=== PATIENT | male | born 1950 | race Caucasian/White ===

== ENCOUNTER 2016-12-09 11:48 | Emergency (ER) | payer OTHER ==
[2016-12-09 12:13] VITALS: BP 176/96; TEMP 97.4; BMI 35.3
[2016-12-09 12:48] LABS: BASOPHILS # (AUTO) 0.1 K/uL (0-0.2); BASOPHILS % (AUTO) 0.3 % (0.0-3.0); EOSINOPHILS % (AUTO) 0.1 % (0.0-7.0); HEMATOCRIT 36.4 % (42.0-52.0); HEMOGLOBIN 12.2 g/dl (14.0-18.0); IMMATURE GRANULOCYTE % (AUTO) 0.4 % (0.0-5.0); LYMPHOCYTES # (AUTO) 0.9 K/uL (0.60-3.4); LYMPHOCYTES % (AUTO) 4.7 (10.0-50.0); MEAN CORPUSCULAR HEMOGLOBIN 26.5 pg (27.0-31.0); MEAN CORPUSCULAR HGB CONC 33.5 (31.8-35.4); MEAN CORPUSCULAR VOLUME 79.1 fl (80.0-94.0); MONOCYTES # (AUTO) 0.9 K/uL (0.4-2.0); MONOCYTES % (AUTO) 5.1 (0-10); NEUTROPHILS # (AUTO) 16.5 K/ul (2.0-6.9); NEUTROPHILS % (AUTO) 89.4; PLATELET COUNT 162 10^3/uL (140-440)
[2016-12-09 12:50] LABS: ABG BASE EXCESS -2 (-2.0-2.0); ABG HCO3 21.5 (22.0-26.0); ABG PCO2 27.2 mmHg (35-45); ABG PH 7.505 (7.35-7.45); ABG TCO2 22 (22.0-28.0)
[2016-12-09 13:40] LABS: ALBUMIN 3.3 g/dL (3.4-5.0); ALBUMIN/GLOBULIN RATIO 0.8; ANION GAP 16.8; BILIRUBIN,TOTAL 2.55 mg/dL (0.00-1.20); BUN/CREATININE RATIO 16.79; CALCIUM 9.1 mg/dL (8.2-10.2); CREATININE 1.31 mg/dL (0.60-1.10); POTASSIUM 3.8 mmol/L (3.5-5.1); TOTAL PROTEIN 7.4 g/dL (5.8-8.1); TROPONIN I 0.029 ng/ml (0.0000-0.4000)
[2016-12-09 13:44] LABS: CREATINE KINASE MB 6.4 ng/ml (0.0-3.6)
--- NOTE | 2016-12-09 13:56 | ED.PDOC ---
General ED Provider: Dr. LISS DURAN Chief Complaint: Altered Mental Status Stated Complaint: ALTERED L.O.C. Time Seen by Physician: 12:10 Mode of Arrival: Ambulance Information Source: Patient Exam Limitations: No limitations Nursing and Triage Documentation Reviewed and Agree: Yes Past Medical History - Social History Smoking Status: Former smoker Hx Substance Use: No Alcohol Screening: None - Immunizations Tetanus Shot up to Date: No Course - Course Hematology/Chemistry: 12/09/16 12:35 12/09/16 12:35 Orders, Labs, Meds: Lab Review 12/09/16 12/09/16 12:35 12:44 WBC 18.50 H RBC 4.60 L Hgb 12.2 L Hct 36.4 L MCV 79.1 L MCH 26.5 L MCHC 33.5 RDW Coeff of Janeen 14.5 Plt Count 162 Immature Gran % (Auto) 0.4 Neut % (Auto) 89.4 Lymph % (Auto) 4.7 L Miller % (Auto) 5.1 Eos % (Auto) 0.1 Baso % (Auto) 0.3 Immature Gran # (Auto) 0.1 Neut # 16.5 H Lymph # 0.9 Miller # 0.9 Eos # 0.0 Baso # 0.1 D-Dimer 0.74 Puncture Site Rbrach O2 Saturation 98.0 ABG pH 7.505 H* ABG pCO2 27.2 L ABG pO2 86.0 ABG HCO3 21.5 L ABG Total CO2 22 ABG Base Excess -2 FiO2 % 21.0 Sodium 136 Potassium 3.8 Chloride 103 Carbon Dioxide 20 L Anion Gap 16.8 BUN 22 H Creatinine 1.31 H Estimated GFR (MDRD) 55.00 BUN/Creatinine Ratio 16.79 Glucose 225 H Lactic Acid 20.7 H Calcium 9.1 Total Bilirubin 2.55 H AST 67 H ALT 33 Alkaline Phosphatase 148 H Total Creatine Kinase 951 CK-MB (CK-2) 6.4 H* CK-MB (CK-2) % 0.61629 Troponin I 0.0290 Total Protein 7.4 Albumin 3.3 L Globulin 4.1 Albumin/Globulin Ratio 0.80 Orders Category Date Time Status ABG DRAW REQUEST Stat CARDIO 12/09/16 12:44 Completed EKG-(ED ONLY) Stat CARDIO 12/09/16 12:13 Completed NPO REMINDER: IMAGING ONCE CARE 12/09/16 13:51 Active ABG Stat LAB 12/09/16 12:44 Completed BLOOD CULTURE Stat LAB 12/09/16 12:35 Received CBC W/ AUTO DIFF Stat LAB 12/09/16 12:35 Completed COMPREHENSIVE METABOLIC PANEL Stat LAB 12/09/16 12:35 Completed CREATINE KINASE Stat LAB 12/09/16 12:35 Completed D-DIMER Stat LAB 12/09/16 12:35 Completed LACTIC ACID Stat LAB 12/09/16 12:35 Completed TROPONIN I Stat LAB 12/09/16 12:35 Completed URINALYSIS C & S IF INDICATED Stat LAB 12/09/16 12:12 Uncollected CHEST, 1V AP ONLY Stat RADS 12/09/16 12:[address] ABD/PEL WO RENAL STONE PROT Stat RADS 12/09/16 12:[address] CHEST W/O CONTRAST Stat RADS 12/09/16 12:[address] HEAD W/O CONTRAST Stat RADS 12/09/16 12:13 Ordered ULTRASOUND ABDOMEN, RT. UPPER QUAD [U/S ABDOMEN, RT. RADS 12/09/16 13:50 Ordered UPPER QUAD] Stat Vital Signs: Temp Pulse Resp BP Pulse Ox 12/09/16 12:08 97.4 F L 115 H 20 176/96 H 98 Departure - Departure Allergies/Adverse Reactions: Allergies Iodinated Contrast Media - Oral and Adverse Reaction (Verified 12/09/16 12:55) naproxen [From Aleve] Adverse Reaction (Verified 12/09/16 12:55) Home Medications: Ambulatory Orders Benazepril HCl 20 mg PO DAILY 12/09/16 Citalopram Hydrobromide [Citalopram HBr] 20 mg PO BEDTIME 12/09/16 Cyclobenzaprine HCl [Flexeril] 0.5 - 1 tab PO DAILY PRN 12/09/16 Esomeprazole Magnesium [Nexium] 40 mg PO DAILY 12/09/16 Metformin HCl [Metformin HCl ER] 1,500 mg PO BEDTIME 12/09/16 Metoprolol Succinate 25 mg PO DAILY 12/09/16 Morphine Sulfate 30 mg PO TID 12/09/16 Pregabalin [Lyrica] 150 mg PO DAILY 12/09/16 Ranitidine HCl [Acid Control] 150 mg PO DAILY 12/09/16 Simethicone 125 mg PO DAILY 12/09/16
--- NOTE | 2016-12-09 14:09 | ED.PDOC ---
General ED Provider: Dr. LISS DURAN Chief Complaint: Altered Mental Status Stated Complaint: ALTERED MENTAL STATUS Time Seen by Physician: 12:10 Mode of Arrival: Ambulance Information Source: Patient Exam Limitations: No limitations Nursing and Triage Documentation Reviewed and Agree: Yes Neurological Complaint Exam - Altered Mental Status Complaint/Exam Current Mental Status: Confusion, Agitation (DECREASED MENTATION FROM BASE LINE ) Last Known Well: 2 DAYS Duration: 2 DAYS Symptoms Are: Still present Timing: Constant Episodes Lasting: Days Initial Severity: Moderate Current Severity: Mild Eye Deviation Present: No Character: Reports: Confusion Aggravating: Reports: None Alleviating: Reports: None Associated Signs and Symptoms: Reports: Weakness. Denies: Dizziness, Headache, Fever, Illness, Nuchal rigidity, Seizure, Nausea, Vomiting, Recently depressed, Trauma Cardiac Risk Factors: Reports: Hypertension, Diabetes CVA Risk Factors: Reports: Hypertension Related Surgical History: Reports: None Carotid Bruit Present: No Glascow Coma Scale (see protocol): 15 Nystagmus Present: No Focal Weakness: Present: None Focal Sensory Loss: Present: None Gait: Unable Babinski Sign: Negative Right, Negative Left Signs of Injury: Present: Normal findings Thrombolytics Considered: No Differential Diagnoses: Metabolic Disorder, Sepsis Review of Systems - Review Of Systems Constitutional: Reports: Malaise Eyes: Reports: No symptoms Ears, Nose, Mouth, Throat: Reports: No symptoms Respiratory: Reports: No symptoms Cardiac: Reports: No symptoms GI: Reports: Abdominal pain : Reports: No symptoms Musculoskeletal: Reports: No symptoms Skin: Reports: No symptoms Neurological: Reports: Cognitive dysfunction Endocrine: Reports: No symptoms Hematologic/Lymphatic: Reports: No symptoms All Other Systems: Reviewed and Negative Past Medical History - Past Medical History Previously Healthy: No Endocrine: Reports: DM 2 Cardiovascular: Reports: Hypertension Respiratory: Reports: COPD Hematological: Reports: Anemia Gastrointestinal: Reports: None Genitourinary: Reports: None Neuro/Psych: Reports: None Musculoskeletal: Reports: None Cancer: Reports: None - Surgical History General Surgical History: Reports: Cholecystectomy, Orthopedic - Family History Family History: Reports: Unknown - Social History Smoking Status: Former smoker Hx Substance Use: No Alcohol Screening: None - Immunizations Tetanus Shot up to Date: No Physical Exam - Physical Exam Appearance: Ill-appearing Ill-appearing: Moderate Pain Distress: Moderate Eyes: ANGELINA, EOMI, Conjunctiva clear ENT: Dry mucosa Respiratory: Airway patent, Breath sounds clear, Breath sounds equal, Respirations nonlabored Cardiovascular: RRR, Pulses normal, No rub, No murmur GI/: Tender Musculoskeletal: Normal strength, ROM intact, No edema, No calf tenderness Skin: Warm, Dry, Normal color Neurological: Sensation intact, Motor intact, Reflexes intact, Cranial nerves intact, Alert, Oriented Psychiatric: Affect appropriate, Mood appropriate Critical Care Note - Critical Care Note Total Time (mins): 0 Course - Course Hematology/Chemistry: 12/09/16 12:35 12/09/16 12:35 Orders, Labs, Meds: Lab Review 12/09/16 12/09/16 12/09/16 12:35 12:44 14:10 WBC 18.50 H RBC 4.60 L Hgb 12.2 L Hct 36.4 L MCV 79.1 L MCH 26.5 L MCHC 33.5 RDW Coeff of Janeen 14.5 Plt Count 162 Immature Gran % (Auto) 0.4 Neut % (Auto) 89.4 Lymph % (Auto) 4.7 L Gove % (Auto) 5.1 Eos % (Auto) 0.1 Baso % (Auto) 0.3 Immature Gran # (Auto) 0.1 Neut # 16.5 H Lymph # 0.9 Gove # 0.9 Eos # 0.0 Baso # 0.1 D-Dimer 0.74 Puncture Site Rbrach O2 Saturation 98.0 ABG pH 7.505 H* ABG pCO2 27.2 L ABG pO2 86.0 ABG HCO3 21.5 L ABG Total CO2 22 ABG Base Excess -2 FiO2 % 21.0 Sodium 136 Potassium 3.8 Chloride 103 Carbon Dioxide 20 L Anion Gap 16.8 BUN 22 H Creatinine 1.31 H Estimated GFR (MDRD) 55.00 BUN/Creatinine Ratio 16.79 Glucose 225 H Lactic Acid 20.7 H Calcium 9.1 Total Bilirubin 2.55 H AST 67 H ALT 33 Alkaline Phosphatase 148 H Total Creatine Kinase 951 CK-MB (CK-2) 6.4 H* CK-MB (CK-2) % 0.00964 Troponin I 0.0290 Total Protein 7.4 Albumin 3.3 L Globulin 4.1 Albumin/Globulin Ratio 0.80 Urine Color Yellow Urine Clarity Turbid Urine pH >=9.0 Ur Specific [place] 1.015 Urine Protein 3+ Urine Glucose (UA) Negative Urine Ketones 1+ Urine Blood Trace-intact Urine Nitrite Positive Urine Bilirubin 1+ Urine Urobilinogen 1.0 Ur Leukocyte Esterase 2+ Urine Microscopic RBC 5-10 Urine Microscopic WBC Tntc Ur Squamous Epith Cells Not present Amorphous Sediment 4+ Urine Bacteria 2+ Orders Category Date Time Status ABG DRAW REQUEST Stat CARDIO 12/09/16 12:44 Completed EKG-(ED ONLY) Stat CARDIO 12/09/16 12:13 Completed Hui [CATHETER INSERTION AND CARE] Q8HR CARE 12/09/16 14:34 Active NPO REMINDER: IMAGING ONCE CARE 12/09/16 13:51 Active ABG Stat LAB 12/09/16 12:44 Completed BLOOD CULTURE Stat LAB 12/09/16 12:35 Received CBC W/ AUTO DIFF Stat LAB 12/09/16 12:35 Completed COMPREHENSIVE METABOLIC PANEL Stat LAB 12/09/16 12:35 Completed CREATINE KINASE Stat LAB 12/09/16 12:35 Completed D-DIMER Stat LAB 12/09/16 12:35 Completed LACTIC ACID Stat LAB 12/09/16 12:35 Completed TROPONIN I Stat LAB 12/09/16 12:35 Completed URINALYSIS C & S IF INDICATED Stat LAB 12/09/16 14:10 Completed URINE CULTURE Stat LAB 12/09/16 14:10 Received Ceftriaxone Sodium [Rocephin] MEDS 12/09/16 14:24 Discontinued 2 gm .ROUTE .STK-MED ONE Ceftriaxone Sodium [Rocephin] 2 gm MEDS 12/09/16 14:10 Discontinued 0.9 % Sodium Chloride [Sodium Chloride] 100 ml IV ONCE Lidocaine HCl [Uro-Jet] MEDS 12/09/16 14:24 Discontinued 10 ml MUCOUSMEMB .STK-MED ONE Morphine Sulfate [Morphine 4 mg/ml Syringe] MEDS 12/09/16 14:30 Discontinued 2 mg IVP ONCE STA CT ABD/PEL WO RENAL STONE PROT Stat RADS 12/09/16 12:[address] CHEST W/O CONTRAST Stat RADS 12/09/16 12:[address] HEAD W/O CONTRAST Stat RADS 12/09/16 12:13 Completed ULTRASOUND ABDOMEN, RT. UPPER QUAD [U/S ABDOMEN, RT. RADS 12/09/16 13:50 Ordered UPPER QUAD] Stat Medications Discontinued Medications Generic Name Dose Route Start Last Admin Trade Name Freq PRN Reason Stop Dose Admin Ceftriaxone Sodium 2 gm/ 100 mls @ 100 mls/hr 12/09/16 14:10 12/09/16 14:56 Sodium Chloride IV 12/09/16 15:09 Not Given ONCE STA Morphine Sulfate 2 mg 12/09/16 14:30 12/09/16 14:55 Morphine 4 Mg/Ml Syringe IVP 12/09/16 14:31 4 mg ONCE STA Administration Vital Signs: Temp Pulse Resp BP Pulse Ox 12/09/16 12:08 97.4 F L 115 H 20 176/96 H 98 Departure - Departure Time of Disposition: 15:24 Disposition: TSF SHORT-TRM HOSP Discharge Problem: Altered mental status, Urinary tract bacterial infections Instructions: Urinary Tract Infection in Men (ED) Condition: Good Pt referred to PMD for follow-up: Yes ([facility] TRANSFERED TO [facility] ) Additional Instructions: Please call your Family Physician as soon as possible to schedule a follow-up appointment. Allergies/Adverse Reactions: Allergies Iodinated Contrast Media - Oral and Adverse Reaction (Verified 12/09/16 12:55) naproxen [From Aleve] Adverse Reaction (Verified 12/09/16 12:55) Home Medications: Ambulatory Orders Benazepril HCl 20 mg PO DAILY 12/09/16 Citalopram Hydrobromide [Citalopram HBr] 20 mg PO BEDTIME 12/09/16 Cyclobenzaprine HCl [Flexeril] 0.5 - 1 tab PO DAILY PRN 12/09/16 Esomeprazole Magnesium [Nexium] 40 mg PO DAILY 12/09/16 Metformin HCl [Metformin HCl ER] 1,500 mg PO BEDTIME 12/09/16 Metoprolol Succinate 25 mg PO DAILY 12/09/16 Morphine Sulfate 30 mg PO TID 12/09/16 Pregabalin [Lyrica] 150 mg PO DAILY 12/09/16 Ranitidine HCl [Acid Control] 150 mg PO DAILY 12/09/16 Simethicone 125 mg PO DAILY 12/09/16 Disposition Discussed With: Patient, Family
[2016-12-09] MEDS ORDERED: ROCEPHIN 2 GM in SODIUM CHLORIDE 100 ML IV STA (14:10)
--- NOTE | 2016-12-09 14:13 | CT ---
EXAM: CT of the abdomen pelvis without contrast History: Abdominal pain. Technique: Multiplanar CT images through the abdomen pelvis were obtained without the administratio n of IV contrast Findings: Motion artifact. Lung bases are free of consolidation. Left hip arthroplasty hardware. Degenerative changes of the s pine and chronic compression deformity within the lower thoracic spine. Spinal stimulator device se en. Cholecystectomy clips. Fatty liver. No renal stones and no hydronephrosis. No jennifer peripancreatic inflammation. Atherosclerotic vascular calcifications. Unremarkable. No bowel obstruction. Dila shilo. A [id number] amount colonic stool. Prostate is not enlarged. Mild diffuse bladder wal l thickening. Small focus of inflammation within the left lower abdomen adjacent to the colon. The re is wall thickening of the rectosigmoid colon with adjacent inflammation. No ascites. No free ai r. Impression: 1. Colitis of the rectosigmoid colon with etiology most likely infectious or inflammatory. 2. Small focus of inflammation within the left lower abdomen probably represents epiploic appendagi tis. 3. Mild diffuse bladder wall thickening could be related to cystitis or bladder outlet obstruction. 4. Fatty liver.
--- NOTE | 2016-12-09 14:14 | CT ---
EXAM: CT THORAX HISTORY: Cough. TECHNIQUE: CT thorax without intravenous contrast. 5-mm axial sections. Coronal and sagittal re-fo rmations. COMPARISON: None FINDINGS: Normal heart size and thoracic aorta. Subtle infiltrate or atelectasis is seen in the right base and lower aspect of the right upper lobe. Chronically elevated right hemidiaphragm. No vascular congestion or pleural fluid. No pneumothor ax. The bones reveal chronic wedge-shaped deformity of what probably represents L1 with partial fusion o f the interspace at T12/L1. Spinal stimulator is noted. There is a 2 cm subareolar opacity on the left which could indicate gynecomastia. This is asymmetric with contralateral, which appears normal and mammographic workup may be beneficial to exclude other pathology. IMPRESSION: 1. Subtle atelectasis or pneumonia within the right lung. 2. Left subareolar opacity. Mammographic workup recommended.
[2016-12-09] MEDS ORDERED: ROCEPHIN ONE (14:24)
[2016-12-09] MEDS ORDERED: URO-JET MUCOUSMEMB ONE (14:24)
[2016-12-09] MEDS ORDERED: MORPHINE 4 MG/ML SYRINGE IVP STA (14:30)
[2016-12-09 14:49] LABS: BILIRUBIN,URINE 1+ (NEGATIVE); KETONES,URINE 1+ (NEGATIVE); LEUKOCYTE ESTERASE ,URINE 2+ (NEGATIVE); NITRITE,URINE Positive (NEGATIVE); PH,URINE >=9.0 (5-9); PROTEIN,URINE 3+ (NEGATIVE); URINE, BLOOD Trace-intact (NEGATIVE)
[2016-12-09 14:52] LABS: ADD URINE MICROSCOPIC YES
[2016-12-09 14:53] LABS: BACTERIA,URINE 2+ (NOT PRESENT)
--- NOTE | 2016-12-09 15:03 | CT ---
EXAM: CT BRAIN HISTORY: Altered mental status TECHNIQUE: CT brain without intravenous contrast. 5-mm axial sections with Reformations. COMPARISON: None FINDINGS: The lower cerebellar hemispheres were excluded from the field of view. There is mild generalized at rophy. Mild to moderate chronic microvascular ischemic change is suggested. Brain otherwise is unre markable without distinct evidence of hemorrhage or large vessel distribution recent ischemic infarc tion. There is no suggestion of acute hydrocephalus or subdural fluid collection. No mass or mass effect. Cranium is within normal limits. Mastoid air cells are aerated. The visualized paranasal sinuses are clear. IMPRESSION: No acute intracranial process identified.
[2016-12-21 08:38] LABS: ANAEROBIC CULTURE NO GROWTH
== END 2016-12-09 16:42 | disposition short-term general hospital (02) ==
LOC: ED 11:48
DX: R41.82 Altered mental status, unspecified (principal); N39.0 Urinary tract infection, site not specified; I10 Essential (primary) hypertension; E11.9 Type 2 diabetes mellitus without complications; D64.9 Anemia, unspecified; J44.9 Chronic obstructive pulmonary disease, unspecified; Z79.899 Other long term (current) drug therapy
CPT/HCPCS: 36415; 74176; 80053; 81001; 82550; 82553; 82803; 83605; 84484; 85025; 85379; 87040; 87070; 87075; 87086; 87186; 93005; 93010; 96361; 96365; 96366; 96374; 96375; 99284

== ENCOUNTER 2016-12-09 16:43 | Outpatient (CLI) | END 2016-12-09 16:44 | disposition home or self-care (01) | LOC: AMBL 16:43 | PROVIDERS: ATTEND Emergency Medicine | DX: R41.82 Altered mental status, unspecified (principal); R00.0 Tachycardia, unspecified ==